=== PATIENT | female | born 1960 | race Caucasian/White ===

== ENCOUNTER 2021-04-26 16:20 | Outpatient (CLI) | payer SELFPAY | END 2021-04-26 23:59 | disposition short-term general hospital (02) | PROVIDERS: Visit Provider Physician Assistant | DX: Z20.822 Contact with and (suspected) exposure to COVID-19 (principal) | CPT/HCPCS: 87635; U0003; U0005 ==

== ENCOUNTER → 2024-12-20 | Outpatient (CLI) | payer SELFPAY ==
--- NOTE | 2024-12-20 12:00 | MRI_ITS ---
PROCEDURE: BRAIN W/WO CONTRAST 12/20/2024 REASON FOR EXAM: DIPLOPIA TECHNIQUE: Procedure Code: [id number] Modality: MR Procedure: BRAIN W/WO CONTRAST Multiplanar and multisequence images were obtained. COMPARISON: None. FINDINGS: A few scattered punctate FLAIR hyperintense foci within the bilateral cerebral white matter are nonspecific. The orbits and their contents appear symmetric and unremarkable. No abnormal enhancement pattern. The bilateral optic nerves and optic chiasm appear unremarkable. The regions of the optic radiations and bilateral occipital lobes appear unremarkable. Otherwise the brain parenchyma appears unremarkable. The cooper-white matter differentiation is appropriate. The ventricles are normal in size and configuration. No midline shift. The midline structures are intact, specifically the corpus callosum, septum pellucidum, pituitary gland, and cerebellar vermis. The cervicomedullary junction appears unremarkable. Mucosal thickening within a single right ethmoid air cell. Otherwise the paranasal sinuses and mastoid air cells are clear. Incidentally noted is a prominent right submandibular lymph node. Diffusion-weighted images demonstrate no restricted diffusion. No abnormal enhancement pattern. MRI/Brain W/WO Contrast IMPRESSION: 1. Unremarkable MRI of the orbits. 2. A few scattered nonspecific FLAIR hyperintense foci within the bilateral ce rebral white matter Reading Location: [id number]
== END | disposition home or self-care (01) ==
LOC: MRI 12:08
PROVIDERS: PCP Family Medicine; Referring Provider Ophthalmology; Visit Provider Ophthalmology
DX: H53.2 Diplopia (principal)
CPT/HCPCS: 70553; A9575